=== PATIENT | male | born 1980 | race Caucasian/White ===

== ENCOUNTER 2020-02-26 10:20 | Emergency (ER) | payer SELFPAY ==
[~2020-02-26] VITALS: Ht 185.4 cm; Wt 95.0 kg
[2020-02-26 10:22] VITALS: BP 154/87
[2020-02-26] MEDS ORDERED: BENZOCAINE 20% SPRAY 0.5ML ONE (10:42)
[2020-02-26] MEDS ORDERED: BENZOCAINE 20% SPRAY 0.5ML TP ONE (11:00)
--- NOTE | 2020-02-26 12:19 | NUR ---
Patient given discharge instructions and medication script. and they have confirmed that they understand the instructions. Patient ambulatory with steady gait. Left ED in no distress and with all personal belongings.
== END 2020-02-26 12:20 | disposition home or self-care (01) ==
LOC: ED 10:53
DX: K04.7 Periapical abscess without sinus (principal); F17.200 Nicotine dependence, unspecified, uncomplicated
CPT/HCPCS: 41800; 99284

== ENCOUNTER 2020-04-30 11:39 | Emergency (ER) | payer MEDICAID ==
[~2020-04-30] VITALS: Ht 185.4 cm; Wt 99.4 kg
[2020-04-30 11:40] VITALS: BP 155/87
[2020-04-30] MEDS ORDERED: BUPIVACAINE/PF-EPI 0.25% 1:200K SQ ONE (12:00)
[2020-04-30] MEDS ORDERED: LIDOCAINE-MPF 1%, 5ML INFIL ONE (12:00)
--- NOTE | 2020-04-30 12:32 | NUR ---
CLIENT SOLUTIONS MANAGER: PT TO ROOM FROM LOBBY
== END 2020-04-30 13:07 | disposition home or self-care (01) ==
LOC: ED 12:59
DX: K08.89 Other specified disorders of teeth and supporting structures (principal)
CPT/HCPCS: 99283